=== PATIENT | female | born 1990 | race Hispanic/Latino ===

== ENCOUNTER 2025-03-21 20:30 | Emergency (ER) | payer BC ==
[2025-03-21] MEDS ORDERED: Acetaminophen 325 MG TAB ONE (21:26)
== END 2025-03-21 22:25 | disposition home or self-care (01) ==
LOC: NAV ERS 20:30
DX: K52.9 Noninfective gastroenteritis and colitis, unspecified (principal); B34.9 Viral infection, unspecified
CPT/HCPCS: 99283; Q0162